=== PATIENT | female | born 1980 | race Caucasian/White ===

== ENCOUNTER → 2019-09-19 | Outpatient (CLI) | payer BC ==
--- NOTE | 2019-09-19 15:06 | RAD ---
BILATERAL SCREENING MAMMOGRAM, 3-D History: Routine screening. Comparison: None. This exam is the baseline. Technique: MLO and CC digital tomosynthesis (3D) images obtained. Radiologist reviewed these images on dedicated workstation. Findings: Breast Tissue Density C : The breasts are heterogeneously dense, which may obscure small masses. A small masses present measuring up to 1 cm at the posterior right upper-outer breast 15 cm from the nipple. This probably represents an intramammary lymph node. No suspicious calcifications or distortion. IMPRESSION: Posterior right upper-outer breast mass which probably represents a lymph node. Further evaluation with ultrasound exam is recommended. BI-RADS Category 0: Incomplete: Need additional imaging evaluation. The images were reviewed with computer-aided detection. Patient information is entered into reminder system with a target due date for the next screening mammogram. Mammography is the most sensitive method for finding small breast cancers, but it does not detect them all and is not a substitute for careful clinical examination. A negative mammogram does not negate a clinically suspicious finding and should not result in delay in biopsying a clinically suspicious abnormality. "Our facility is accredited by the [employer] Mammography Program." Electronically signed by: Vasu Benitez MD (09/19/2019 3:03 PM) [email or web address]
== END | disposition home or self-care (01) ==
LOC: MAMMO 07:39
PROVIDERS: ATTEND Physician Assistant Medical
DX: Z12.31 Encounter for screening mammogram for malignant neoplasm of breast (principal); N63.11 Unspecified lump in the right breast, upper outer quadrant
CPT/HCPCS: 77063; 77067

== ENCOUNTER → 2019-09-23 | Outpatient (CLI) | payer BC ==
--- NOTE | 2019-09-23 12:35 | RAD ---
INDICATION: 39 year-old female presents for further evaluation of an abnormality seen on recent screening mammogram TECHNIQUE: Targeted high resolution sonography of the region of clinical concern was performed. COMPARISON: 09/19/2019 ULTRASOUND FINDINGS: Targeted ultrasound of the mammographic area of concern was performed. 10:00 position, 12 cm from the nipple: A hypoechoic mass of circumscribed margins and round/oval shape is present with central echogenicity and vascular flow on Doppler imaging centrally, measuring 0.8 x 0.5 x 0.7 cm. At 11:00 position, 1 cm from the nipple a well circumscribed anechoic mass with enhanced through transmission is seen measuring 6 mm. At the 9:00 position, 8 cm the nipple a 4 mm hypoechoic lesion is seen with mildly irregular margins with mild enhanced through transmission which may represent a complex cyst. IMPRESSION: Probably benign finding. RECOMMENDATION: Recommend 6 month ultrasound and mammography follow up. At that time spot compression MLO view and laterally exaggerated CC view can also be performed with standard full-field views of the right breast. BI-RADS 3: Probably Benign Electronically signed by: Loi Cooper MD (09/23/2019 12:32 PM) [email or web address]
== END | disposition home or self-care (01) ==
LOC: US 11:00
PROVIDERS: ATTEND Physician Assistant Medical
DX: R92.2 Inconclusive mammogram (principal)
CPT/HCPCS: 76641

== ENCOUNTER → 2020-04-04 | Outpatient (CLI) | payer BC ==
--- NOTE | 2020-04-04 11:07 | RAD ---
EXAMINATION: MG DIAGNOSTICUNILAT MAMMO, US BREAST RT CLINICAL HISTORY: 6 month follow-up right breast abnormality TECHNIQUE: Digital full field and spot compression views of the right breast and targeted right breas t ultrasound. COMPARISON: Ultrasound 09/23/2019, mammogram 09/19/2019 BREAST COMPOSITION: The breasts are heterogeneously dense, which may obscure small masses. FINDINGS: DIAGNOSTIC RIGHT BREAST MAMMOGRAM: Oval circumscribed mass in the right upper-outer quadrant in the posterior third at 10:00 position/ax illary tail appears unchanged. No evidence of new suspicious mass, calcifications, or areas of surjit ectural distortion. RIGHT BREAST ULTRASOUND: At 10:00 position 12 cm from the nipple, there is an essentially unchanged small lymph node measuring 7 x 4 x 5 mm, previously 8 x 5 x 7 mm, which likely corresponds to the mammographic finding. At 11:00 position 1 cm from the nipple, there is redemonstration of a predominantly round circumscrib ed anechoic mass measuring up to 7 mm, previously 6 mm. On this exam, there also appears to be 2 smal l adjacent cysts versus lobulations along the anterior aspect of the mass which were not definitively appreciated on prior study. Increased through transmission and absent vascularity are again noted. T his may represent a lobular cyst or clustered cysts. Hypoechoic lesion seen at 9:00 position on prior ultrasound is not visualized on this exam. IMPRESSION: 1. Circumscribed anechoic mass at 11:00 position in the right breast as described, probably benign. 2. Essentially unchanged small lymph node at 10:00 position/axillary tail in the right breast. BI-RADS ASSESSMENT: Category 3: Probably Benign RECOMMENDATION: Recommend mammogram in 6 months to include full field views of the bilateral breasts for annual scree shanell on the left and surveillance on the right as well as targeted right breast ultrasound in 6 month s for surveillance. PQRS compliance statement - Patient information was entered into a reminder system with a target due date for the next mammogram. "Our facility is accredited by the [employer] Mammography Program." Electronically signed by: Syed Johnson DO (04/04/2020 11:05 AM) [email or web address]
== END ==
LOC: MAMMO 09:36
PROVIDERS: ATTEND Physician Assistant Medical
DX: R92.8 Other abnormal and inconclusive findings on diagnostic imaging of breast (principal); N63.11 Unspecified lump in the right breast, upper outer quadrant
CPT/HCPCS: 76641; 77065

== ENCOUNTER → 2020-10-01 | Outpatient (CLI) | payer BC ==
--- NOTE | 2020-10-01 10:07 | RAD ---
BILATERAL DIAGNOSTIC 3-D MAMMOGRAPHY AND RIGHT BREAST ULTRASOUND History: Six-month follow-up right breast. Left breast is due for screening. Comparison: Bilateral mammogram 09/19/2019. Right breast ultrasound 09/23/2019. Diagnostic right mammo gram and breast ultrasound 04/04/2020. Technique: Routine MLO and CC tomosynthesis (3D) digital views performed. Images reviewed by the radi ologist at dedicated workstation. Findings: Breast Tissue Density C : The breasts are heterogeneously dense, which may obscure small masses. Mild bilateral glandular nodularity is unchanged. Intramammary lymph node of the right breast 10:00 C position is stable. There are no suspicious microcalcifications or architectural distortion. Real-time ultrasound imaging of the right breast is performed. At the 11:00 position 1 cm from the nipple mildly complicated cyst is unchanged measuring 10 x 7 mm, previously 9 x 6 mm. Cyst is anechoic with posterior acoustic enhancement. The only complicated featu re is gentle lobulations. Intramammary lymph node at the 10:00 position 12 cm from the nipple and is stable and is benign. No a bnormal axillary lymph nodes are identified. IMPRESSION: 1. No mammographic evidence of malignancy. 2. Interval stability of mildly complicated cyst of the right breast 11:00 position 1 cm from the ni pple. Recommend patient return to routine mammogram screening. BI-RADS category 2: Benign findings. The images were reviewed with computer-aided detection. Patient information is entered into the reminder system with a target due date for the next screening mammogram. Mammography is the most sensitive method for finding small breast cancers, but it does not detect the m all and is not a substitute for careful clinical examination. A negative mammogram does not negate a clinically suspicious finding and should not result in delay in biopsying a clinically suspicious a bnormality. "Our facility is accredited by the [employer] Mammography Program." Electronically signed by: Shawn Rodriges MD (10/01/2020 10:05 AM) [email or web address]
== END ==
LOC: MAMMO 16:26
PROVIDERS: ATTEND Physician Assistant Medical
DX: Z09 Encounter for follow-up examination after completed treatment for conditions other than malignant neoplasm (principal); N63.11 Unspecified lump in the right breast, upper outer quadrant
CPT/HCPCS: 76641; 77066; G0279; 77062

== ENCOUNTER → 2020-10-23 | Outpatient (CLI) | payer BC ==
--- NOTE | 2020-10-24 09:59 | KCIC ---
EXAM: ULTRASOUND PELVIS INDICATION: Uterine fibroid. COMPARISON: None available. TECHNIQUE: Transabdominal and endovaginal sonography was performed. FINDINGS: The uterus measures 10.8 x 5.4 x 5 cm. The endometrium measures 0.7 cm. scar noted. No dis crete uterine fibroid. The right ovary measures 4.1 x 1.8 x 2.2 cm. No complex cyst or mass. Doppler flow is maintained. The left ovary measures 3.1 x 1.8 x 2.6 cm. No complex cyst or mass. Doppler flow is maintained. No free pelvic fluid Multiple cystic foci at the lower uterine segment/cervix. Some debris is present within a few of the cysts. No peripheral or internal Doppler flow. IMPRESSION: 1. No uterine fibroid is identified, as queried. Unremarkable endometrium considering patient age. 2. Doppler flow is maintained to both ovaries. No complex cyst or mass. 3. Multiple cystic foci at the lower uterine segment/cervix a few of which have some internal debris. No suspicious Doppler flow or nodularity. The appearance is most typical of nabothian cysts. Electronically signed by: HUGO BECK MD (10/24/2020 9:57 AM) [facility]
== END ==
LOC: KCIC US 12:17
PROVIDERS: ATTEND Obstetrics & Gynecology Gynecology
DX: D25.9 Leiomyoma of uterus, unspecified (principal)
CPT/HCPCS: 76856